=== PATIENT | female | born 1985 | race Caucasian/White ===

== ENCOUNTER 2023-04-04 09:39 | Emergency (ER) | payer OTHER ==
[~2023-04-04] VITALS: Ht 160 cm; Wt 47.6 kg
[2023-04-04 09:40] VITALS: BP_SYST 147; PULSE 110; RESP 19; TEMP 98.1; O2SAT 98
[2023-04-04] MEDS: NACL 0.9% 1,000 ML IV ONE (10:06)
[2023-04-04] MEDS: LORazepam 2 MG/ML VIAL IVP ONE (10:11)
[2023-04-04] MEDS: ONDANSETRON HCL 4 MG/2 ML VIAL IVP ONE (10:11)
[2023-04-04] MEDS: KETOROLAC TROMETHAMINE 30 MG VIAL IVP ONE (10:12)
[2023-04-04 10:22] LABS: BILIRUBIN,URINE 3+ (NEGATIVE); BLOOD, URINE 1+ (NEGATIVE); CLARITY/URINE SL CLOUDY (CLEAR); COLOR,URINE YELLOW (YELLOW); GLUCOSE,URINE NEGATIVE (NEGATIVE); KETONES,URINE 3+ (NEGATIVE); LEUKOCYTE ESTERASE ,URINE NEGATIVE (NEGATIVE); NITRITE, URINE NEGATIVE (NEGATIVE); PROTEIN URINE 2+ (NEGATIVE); UROBILINOGEN,URINE 0.2 (0.2-1.0)
[2023-04-04 10:23] LABS: BASOPHILS % (AUTO) 0.4 % (0.0-2.0); EOSINOPHILS % (AUTO) 0.1 % (0.0-4.0); HEMATOCRIT 42.4 % (36-48); HEMOGLOBIN 14.6 g/dL (12.0-16.0); LYMPHOCYTES # (AUTO) 0.7 K/uL (1.0-5.5); MEAN CORPUSCULAR HEMOGLOBIN 34 pg (27-31); MEAN CORPUSCULAR HGB CONC 35 % (32-36); MEAN CORPUSCULAR VOLUME 99 fL (79.0-98.0); MONOCYTES # (AUTO) 0.5 K/uL (0.0-1.0); MONOCYTES % (AUTO) 8.3 % (1.7-9.3); NEUTROPHILS % (AUTO) 80.2 % (40.0-70.0); PLATELET COUNT (AUTO) 213 K/uL (130-430); RED BLOOD CELL COUNT(AUTO) 4.28 MIL/uL (4.2-6.2); RED CELL DISTRIBUTION WIDTH 14.1 % (9.0-15.0); WHITE BLOOD COUNT (AUTO) 6.3 K/uL (4.8-10.8)
[2023-04-04 10:27] LABS: ANION GAP 19 (5-15); CALCIUM 10.3 mg/dL (8.4-11.0); CARBON DIOXIDE 22 mmol/L (23-29); CHLORIDE 94 mmol/L (98-107); CREATININE 1.04 mg/dL (0.55-1.30); GFR AFRICAN AMERICAN 76 mL/min (>90); GFR NON AFRICAN-AMERICAN 63 mL/min (>90); GLUCOSE 108 mg/dL (74-106); POTASSIUM 3.4 mmol/L (3.5-5.1); SERUM HCG (QUALITATIVE) NEGATIVE (NEGATIVE); SODIUM SERUM 135 mmol/L (136-145); UREA NITROGEN, BLOOD 19 mg/dL (8-21)
[2023-04-04 10:32] LABS: ALANINE AMINOTRANSFERASE 87 U/L (12-78); ALBUMIN 4.8 g/dL (3.4-4.8); ALCOHOL, BLOOD < 3 mg/dL (<10); ASPARTATE AMINOTRANSFERASE 80 U/L (10-37); BILIRUBIN,DIRECT 0.3 mg/dL (0.0-0.3); LIPASE 225 U/L (16-77); TOTAL BILIRUBIN 1.1 mg/dL (0.0-1.0); TOTAL PROTEIN, SERUM 9.3 g/dL (6.4-8.3)
[2023-04-04 10:45] LABS: BACTERIA,URINE FEW /HPF (None Seen)
[2023-04-04 10:46] LABS: HYALINE CASTS, URINE 0-2 /LPF (None Seen); MUCUS,URINE 1+ /LPF (None Seen); URINE AMORPHOUS URATE 1+ /HPF (None Seen)
[2023-04-04 10:47] LABS: BARBITURATE, URINE NEGATIVE (NEG <=200); BENZODIAZEPINE, URINE NEGATIVE (NEG <=150); CANNABINOID, URINE POSITIVE (NEG <=50); COCAINE, URINE NEGATIVE (NEG <=150); METHAMPHETAMINES SCREEN,URINE NEGATIVE (NEG <=500); OPIATE, URINE NEGATIVE (NEG <=100); PHENCYCLIDINE SCREEN,URINE NEGATIVE (NEG <=25); URINE AMPHETAMINE NEGATIVE (NEG <=500); URINE METHADONE NEGATIVE (NEG <=200); URINE OXYCODONE SCREEN NEGATIVE (NEG <=100)
[2023-04-04 10:48] LABS: UR TRICYCLIC ANTIDEPRESSANTS NEGATIVE (NEG <=300)
[2023-04-04] MEDS ORDERED: ONDA-8 TL (12:29)
[2023-04-04] MEDS ORDERED: VIS25 PO (12:39)
[2023-04-04 12:54] VITALS: BP_SYST 126; PULSE 84; RESP 19; TEMP 98; O2SAT 100
[2023-04-05] MEDS ORDERED: LORA-259 PO (13:35)
[2023-04-05] MEDS ORDERED: METR-154 PO (13:35)
== END 2023-04-04 12:51 | disposition home or self-care (01) ==
LOC: SED 09:39
DX: K85.90 Acute pancreatitis without necrosis or infection, unspecified (principal); F10.20 Alcohol dependence, uncomplicated; F12.90 Cannabis use, unspecified, uncomplicated; K76.0 Fatty (change of) liver, not elsewhere classified; F41.9 Anxiety disorder, unspecified; Z79.899 Other long term (current) drug therapy; Y90.0 Blood alcohol level of less than 20 mg/100 ml
CPT/HCPCS: 99285; 74176; 96374; 96375; 96361; 80307; 80076; 80048; 84703; 83690; 85025; 36415; 81001; G0482; J1885; J2060; J2405; J7030; 81000; 81015

== ENCOUNTER 2023-04-05 11:25 | Emergency (ER) | payer OTHER ==
[~2023-04-05] VITALS: Ht 160 cm; Wt 47.6 kg
[2023-04-05 11:25] VITALS: BP_SYST 130; PULSE 99; RESP 18; TEMP 97.8; O2SAT 96
[~2023-04-05 11:25] MED LIST: ONDA-8 TL; VIS25 PO
[2023-04-05] MEDS: NACL 0.9% 1,000 ML IV ONE (12:05)
[2023-04-05 12:08] LABS: BASOPHILS % (AUTO) 0.6 % (0.0-2.0); EOSINOPHILS % (AUTO) 1.1 % (0.0-4.0); HEMATOCRIT 38.5 % (36-48); HEMOGLOBIN 13.3 g/dL (12.0-16.0); LYMPHOCYTES # (AUTO) 0.8 K/uL (1.0-5.5); LYMPHOCYTES % (AUTO) 19.3 % (20.5-51.5); MEAN CORPUSCULAR HEMOGLOBIN 34 pg (27-31); MEAN CORPUSCULAR HGB CONC 35 % (32-36); MEAN CORPUSCULAR VOLUME 98 fL (79.0-98.0); MONOCYTES # (AUTO) 0.3 K/uL (0.0-1.0); MONOCYTES % (AUTO) 7.9 % (1.7-9.3); NEUTROPHILS # (AUTO) 3.1 K/uL (1.8-7.7); NEUTROPHILS % (AUTO) 71.1 % (40.0-70.0); PLATELET COUNT (AUTO) 138 K/uL (130-430); RED BLOOD CELL COUNT(AUTO) 3.92 MIL/uL (4.2-6.2); RED CELL DISTRIBUTION WIDTH 13.5 % (9.0-15.0); WHITE BLOOD COUNT (AUTO) 4.4 K/uL (4.8-10.8)
[2023-04-05 12:11] LABS: CREATININE 0.87 mg/dL (0.55-1.30)
[2023-04-05 12:15] LABS: ALBUMIN 4.1 g/dL (3.4-4.8); BILIRUBIN,DIRECT 0.3 mg/dL (0.0-0.3); TOTAL BILIRUBIN 1.2 mg/dL (0.0-1.0); TOTAL PROTEIN, SERUM 7.8 g/dL (6.4-8.3)
[2023-04-05] MEDS: LORazepam 1 MG TABLET PO ONE (12:35)
[2023-04-05] MEDS: POTASSIUM CHLORIDE 20 MEQ TABLET.ER PO ONE (12:35)
[2023-04-05 13:18] LABS: BILIRUBIN,URINE NEGATIVE (NEGATIVE); BLOOD, URINE NEGATIVE (NEGATIVE); CLARITY/URINE CLEAR (CLEAR); COLOR,URINE YELLOW (YELLOW); GLUCOSE,URINE NEGATIVE (NEGATIVE); KETONES,URINE NEGATIVE (NEGATIVE); LEUKOCYTE ESTERASE ,URINE NEGATIVE (NEGATIVE); NITRITE, URINE NEGATIVE (NEGATIVE); PH,URINE 6.5 (5.0-8.0); PROTEIN URINE NEGATIVE (NEGATIVE); UROBILINOGEN,URINE 0.2 (0.2-1.0)
[2023-04-05] MEDS ORDERED: METR-154 PO (13:35)
[2023-04-05] MEDS ORDERED: LORA-259 PO (13:35)
[2023-04-05 13:47] VITALS: BP_SYST 128; PULSE 77; RESP 18; TEMP 97.6; O2SAT 98
== END 2023-04-05 13:48 | disposition home or self-care (01) ==
LOC: SED 11:25
DX: K29.70 Gastritis, unspecified, without bleeding (principal); F10.239 Alcohol dependence with withdrawal, unspecified; E87.6 Hypokalemia; N76.0 Acute vaginitis; F12.90 Cannabis use, unspecified, uncomplicated; Z79.899 Other long term (current) drug therapy; Y90.6 Blood alcohol level of 120-199 mg/100 ml
CPT/HCPCS: 99283; 96360; 80076; 80048; 81001; 83690; 85025; 36415; 81003; J7030